=== PATIENT | female | born 1965 | race African-American/Black ===

== ENCOUNTER 2017-09-28 06:49 | Day surgery (SDC) | payer MEDICAID ==
[2017-09-28] MEDS ORDERED: ROCURONIUM 50 MG INJ (07:00)
[2017-09-28] MEDS ORDERED: SOD CHLORIDE 0.9% 1,000 ML IV (07:00)
[2017-09-28] MEDS ORDERED: CEFAZOLIN 2 GM/50 ML (PMX) 50 ML IVPB (07:00)
[2017-09-28] MEDS ORDERED: ISOSULFAN BLUE 1% 5 ML INJ SC (09:43)
[2017-09-28] MEDS ORDERED: BUPIVACAINE 0.25% (MPF) 30 ML INJ (09:43)
[2017-09-28] MEDS ORDERED: FENTAnyl 50 MCG/ML VIAL (10:49)
[2017-09-28] MEDS ORDERED: PROPOFOL 20 ML (10:49)
[2017-09-28] MEDS ORDERED: CEFAZOLIN 1 GM INJ (10:49)
[2017-09-28] MEDS ORDERED: MIDAZOLAM 1 MG/ML 2 ML INJ (10:49)
[2017-09-28] MEDS ORDERED: MEPERIDINE 25 MG INJ IV (11:00)
[2017-09-28] MEDS ORDERED: FENTAnyl 50 MCG/ML VIAL IV ×3 (11:00)
[2017-09-28] MEDS ORDERED: HYDROmorphONE 1 MG/5 ML IV SYRINGE IV ×3 (11:00)
[2017-09-28] MEDS ORDERED: DIPHENHYDRAMINE 50 MG INJ IV (11:00)
[2017-09-28] MEDS ORDERED: ONDANSETRON 4 MG INJ IV (11:00)
[2017-09-28] MEDS ORDERED: LABETALOL HCL 20MG INJ IV (11:00)
[2017-09-28] MEDS ORDERED: hydrALAzine 20 MG INJ IV (11:00)
[2017-09-28] MEDS ORDERED: OXYCODONE/ACETAMINOPHEN (5/325) TAB PO (11:00)
[2017-09-28] MEDS ORDERED: METOCLOPRAMIDE 10 MG INJ IV (11:00)
[2017-09-28] MEDS ORDERED: ONDANSETRON 4 MG INJ (11:21)
[2017-09-28] MEDS ORDERED: KETOROLAC 30 MG INJ (11:22)
[2017-09-28] MEDS ORDERED: DEXAMETHASONE 4 MG/ML 1 ML INJ (11:22)
[2017-09-28] MEDS ORDERED: PHENYLephrine (100 MCG/ML) 5ML SYG (11:22)
[2017-09-28] MEDS ORDERED: METOCLOPRAMIDE 10 MG INJ (11:22)
[2017-09-28] MEDS ORDERED: GLYCOPYRROLATE 1 MG INJ (11:30)
[2017-09-28] MEDS ORDERED: NEOSTIGMINE 3 MG/3 ML SYRINGE (11:30)
[2017-09-28] MEDS ORDERED: HYDROCODONE/APAP (7.5/325) TAB PO (12:00)
== END 2017-09-28 13:24 | disposition home or self-care (01) ==
LOC: SDS 06:49
DX: N60.91 Unspecified benign mammary dysplasia of right breast (principal); I10 Essential (primary) hypertension
CPT/HCPCS: 19301; 88307